=== PATIENT | male | born 1965 | race Caucasian/White ===

== ENCOUNTER → 2017-07-26 | Outpatient (CLI) | payer OTHER ==
[~2017-07-26] MED LIST: FLEXERIL10 MG PO; IBU-8800 MG PO; MOTRIN800 MG PO; PERCOCET 325 MG1 TA2 PO; PRILOSEC20 M1 PO
== END | disposition home or self-care (01) ==
LOC: MRI 13:21
DX: M25.561 Pain in right knee (principal); M25.361 Other instability, right knee; V89.2XXD Person injured in unspecified motor-vehicle accident, traffic, subsequent encounter

== ENCOUNTER → 2020-07-24 | Outpatient (CLI) | payer OTHER ==
[~2020-07-24] MED LIST changes: +CYCLOBENZAPRINE10 MG PO; +NAPROSYN500 MG PO; +NEURONTIN300 MG PO; +OXYCODONE HCL10 M1 PO; +REMERON15 M2 PO; +ZOFRAN4 MG PO; +ZYRTEC10 M3 PO
== END | disposition home or self-care (01) ==
LOC: RAD 14:27
PROVIDERS: ATTEND Nurse Practitioner Family
DX: M54.6 Pain in thoracic spine (principal)

== ENCOUNTER 2020-07-28 06:57 | Emergency (ER) | payer OTHER ==
[~2020-07-28] VITALS: Ht 182.8 cm; Wt 68.0 kg
[~2020-07-28 06:57] MED LIST changes: -CYCLOBENZAPRINE10 MG PO; -NAPROSYN500 MG PO; -NEURONTIN300 MG PO; -OXYCODONE HCL10 M1 PO; -REMERON15 M2 PO; -ZOFRAN4 MG PO; -ZYRTEC10 M3 PO
[2020-07-28] MEDS ORDERED: NAPROSYN500 MG PO (08:54)
[2020-07-28] MEDS ORDERED: CYCLOBENZAPRINE10 MG PO (08:54)
== END 2020-07-28 09:03 | disposition home or self-care (01) ==
LOC: ED 06:57
DX: S29.012A Strain of muscle and tendon of back wall of thorax, initial encounter (principal); K21.9 Gastro-esophageal reflux disease without esophagitis; F17.200 Nicotine dependence, unspecified, uncomplicated; Z79.899 Other long term (current) drug therapy; Z90.49 Acquired absence of other specified parts of digestive tract; X58.XXXA Exposure to other specified factors, initial encounter; Y93.89 Activity, other specified; Y92.89 Other specified places as the place of occurrence of the external cause; Y99.8 Other external cause status

== ENCOUNTER 2020-08-06 09:36 | Emergency (ER) | payer OTHER ==
[~2020-08-06 09:36] MED LIST changes: +CYCLOBENZAPRINE10 MG PO; +NAPROSYN500 MG PO
[2020-08-06 10:04] LABS: BASO # 0.1 10*3/uL (0.0-0.1); BASO % 0.5 % (0.0-1.0); EOS # 0.1 10*3/uL (0.0-0.4); EOS % 0.7 % (1.0-4.0); HEMATOCRIT 51.6 % (42.0-52.0); LYMPH # 1.9 10*3/uL (1.3-4.4); LYMPH % 10.8 % (27.0-41.0); MEAN CORPUSCULAR HGB 32.8 pg (27.0-31.0); MEAN CORPUSCULAR HGB CONC 32.8 g/dl (33.0-37.0); MEAN PLATELET VOLUME 8.3 fl (9.6-12.3); MONO % 5.8 % (3.0-9.0); NEUT # 14.1 10*3/uL (2.3-7.9); NEUT % 81.7 % (47.0-73.0); PLATELET COUNT AUTOMATED 396 10*3/uL (130-400); RED BLOOD COUNT 5.16 10*6/uL (4.50-5.90); WHITE BLOOD COUNT 17.2 10*3/uL (4.8-10.8)
[2020-08-06 10:12] LABS: ACT PARTIAL THROMBO TIME 25.4 SECONDS (20.0-32.1)
[2020-08-06 10:25] LABS: ALBUMIN 2.9 gm/dl (3.1-4.5); ALKALINE PHOSPHATASE 197 U/L (45-117); BUN 6 mg/dl (7-24); CHLORIDE 102 mmol/L (98-107); CREATININE 0.67 mg/dL (0.70-1.30); LIPASE 30 U/L (73-393); POTASSIUM 4.1 mmol/L (3.5-5.1); SGOT/AST 17 IU/L (3-35); SGPT/ALT 9 U/L (12-78); SODIUM 140 mmol/L (136-145)
== END 2020-08-06 18:35 | disposition short-term general hospital (02) ==
LOC: ED 09:36
PROVIDERS: Emergency Medicine
DX: M48.54XA Collapsed vertebra, not elsewhere classified, thoracic region, initial encounter for fracture (principal); C79.51 Secondary malignant neoplasm of bone; Z79.899 Other long term (current) drug therapy

== ENCOUNTER 2020-09-16 06:15 | Inpatient (IN) | payer OTHER ==
[~2020-09-16] VITALS: Ht 180.3 cm; Wt 56.8 kg
[2020-09-16 06:22] VITALS: BP 133/98
[2020-09-16 06:40] LABS: HEMATOCRIT 43.3 % (42.0-52.0); MEAN CELL VOLUME 96.7 fl (80.0-94.0); MEAN CORPUSCULAR HGB 32.4 pg (27.0-31.0); MEAN CORPUSCULAR HGB CONC 33.5 g/dl (33.0-37.0); MEAN PLATELET VOLUME 9.4 fl (9.6-12.3); PLATELET COUNT AUTOMATED 333 10*3/uL (130-400); RED BLOOD COUNT 4.48 10*6/uL (4.50-5.90); RED CELL DISTRI WIDTH 13.1 % (0-14.5); WHITE BLOOD COUNT 22.3 10*3/uL (4.8-10.8)
[2020-09-16 07:03] LABS: ALBUMIN 2.2 gm/dl (3.1-4.5); ALKALINE PHOSPHATASE 235 U/L (45-117); BUN 20 mg/dl (7-24); CHLORIDE 89 mmol/L (98-107); POTASSIUM 3.3 mmol/L (3.5-5.1); SGOT/AST 20 IU/L (3-35); SGPT/ALT 15 U/L (12-78); SODIUM 138 mmol/L (136-145); TOTAL PROTEIN 5.9 gm/dL (6.4-8.2)
[2020-09-16 07:06] LABS: PLATELET SUFFICIENCY NORMAL (NORMAL); POLYCHROMASIA SLIGHT; TOTAL CELLS COUNTED 100 #CELLS
--- NOTE | 2020-09-16 07:07 | NUR ---
REPORT RECIEVED FROM HÉCTOR BALTAZAR
[2020-09-16 08:18] VITALS: BP 129/96
--- NOTE | 2020-09-16 08:19 | NUR ---
PT CONFUSED TO PLACE AND TIME PT REPEATEDLY TRIES TO LEAVE ROOM PT SPOUSE WITH PATIENT TO HELP KEEP PT IN ROOM AND IN BED PT WITH POOR UNSTEADY GAIT
[2020-09-16 08:30] LABS: BILIRUBIN 2+ (Negative); BLOOD Negative (Negative); CLARITY Clear (Clear); COLOR Dark Yellow (Yellow); GLUCOSE Negative (Negative); KETONE Trace (Negative); LEUKO ESTERASE Trace (Negative); NITRITE Negative (Negative)
[2020-09-16 08:44] LABS: BACTERIA 1+; EPITHELIAL CELLS 0-2; HYALINE CAST 31-40; MUCOUS 1+
[2020-09-16 08:47] LABS: ACT PARTIAL THROMBO TIME 24.2 SECONDS (20.0-32.1); INTERNATIONAL NORM RATIO 1.1 (2.0-3.5)
[2020-09-16 08:52] LABS: LIPASE 16 U/L (73-393)
[2020-09-16 09:01] LABS: TROPONIN I < 0.015 ng/ml (<0.045)
[2020-09-16 09:43] VITALS: BP 122/93
[2020-09-16 11:34] VITALS: BP 118/88
[2020-09-16 13:53] LABS: BUN 19 mg/dl (7-24); CHLORIDE 93 mmol/L (98-107); CREATININE 0.52 mg/dL (0.70-1.30); SODIUM 137 mmol/L (136-145)
[2020-09-16 13:57] LABS: POTASSIUM 2.4 mmol/L (3.5-5.1)
--- NOTE | 2020-09-16 15:35 | NUR ---
CALLED TO ROOM PER RESIDENT. PT HAS PULLED HIS IV LINE OUT. DR QIU NOTIFIED.
--- NOTE | 2020-09-16 18:01 | NUR ---
DIETARY ORDER PUT IN AT THIS TIME FOR TRAY. DIETARY CONTACTED TO CONFIRM THEY RECEIVED ORDER.
--- NOTE | 2020-09-16 19:07 | NUR ---
PT REMOVED IV AT THIS TIME. THIS RN CONTACTED BOW STAPLER FOR 1:1 SITTER PER ORDER. BOW STAPLER STATES THERE IS NO STAFF FOR THIS AT THIS TIME. THIS RN CONTACTED DR COSTA AT THIS TIME TO INFORM HER THAT THIS RN FEELS UNCOMFORTABLE STARTING ANOTHER IV UNTIL 1:1 CARE CAN BE PROVIDED. INFORMED HER THAT PT SHOULD BE GOING TO FLOOR SOON PER NURSING BOW STAPLER.
[2020-09-16 19:45] LABS: BUN 20 mg/dl (7-24); CHLORIDE 94 mmol/L (98-107); CREATININE 0.49 mg/dL (0.70-1.30); SODIUM 138 mmol/L (136-145)
--- NOTE | 2020-09-16 19:45 | NUR ---
PT POTASSIUM 2.[address] VALDIVIA CONTACTED. STATES HE WILL ORDER K-DUR FOR REPLACEMENT.
[2020-09-16 19:48] LABS: POTASSIUM 2.4 mmol/L (3.5-5.1)
--- NOTE | 2020-09-16 20:32 | NUR ---
1:1 SITTER AT BEDSIDE AT THIS TIME. IV STARTED. MEDICATIONS RUNNING AT THIS TIME. WILL CONTINUE TO MONITOR
--- NOTE | 2020-09-16 21:44 | NUR ---
PT AGGITATED AT THIS TIME. ATTEMPT TO REDIRECT PT WAS MADE. PT TRYING TO PULL OUT IV. RESIDENT CONTACTED AT THIS TIME.
[2020-09-17 00:15] VITALS: BP 112/88
--- NOTE | 2020-09-17 00:15 | NUR ---
A 55, admitted to 5E, under the services of JAYJAY Vasques DO with a diagnosis of ems called to patient home for report of fall and altered mental status. patient reported feeling confused to EMS, family per EMS said patient has fallen multiple times in last 24hrs according to EMS run report and said patient had hit his head. Patient has just finished Chemo therapy for esophageal cancer. . Chief complaint is METABOLIC ENCEPHALOPATHY, DEHYDRATIONH, HYPERCALCEMIA. Patient arrived via stretcher from ER. Monitor applied. Initial assessment completed. Vital signs taken and recorded. JAYJAY VASQUES DO notified of admission to 5E unit. Orders received. See assessment for past medical history, medications and allergies. Patient and/or family oriented to unit. [address] visitation policy unable to notify patient D/T [facility]. Clothing/patient valuable form completed. No family with patient on admission. Patient speaking almost constantly randomly and sometimes not understandable. patient constantly fidigiting with clothing and bed sheets.patient reaching in the air for things not there. very restless. patient has 1:1 sitter at his bedside becausea patient has pulled multiple IV out. will not let heart monitor be placed pulls leads off. patient confused. No family here but left list of home medications. patient unable to answer questions appropriately. IV site in left upper arm infusing 0.9ns at this time. KATIA FABIAN
[2020-09-17] MEDS ORDERED: REMERON15 M2 PO (01:06)
[2020-09-17] MEDS ORDERED: OXYCODONE HCL10 M1 PO (01:08)
[2020-09-17] MEDS ORDERED: ZOFRAN4 MG PO (01:08)
[2020-09-17] MEDS ORDERED: ZYRTEC10 M3 PO (01:09)
[2020-09-17] MEDS ORDERED: NEURONTIN300 MG PO (01:10)
--- NOTE | 2020-09-17 02:27 | NUR ---
notified Dr. Lucio that patient home medication list was given to us by and is entered into the computer.
--- NOTE | 2020-09-17 02:34 | NUR ---
PATIENT CONTINUES TO BE RESTLESS IN BED CONSTANTLY MOVING LEGS AND PULLING AT BLANKETS/GOWN AND REACHING OUT. 1:1 SITTER AT BEDSIDE.
[2020-09-17 07:04] LABS: HEMATOCRIT 40.6 % (42.0-52.0); MEAN CORPUSCULAR HGB 32.2 pg (27.0-31.0); MEAN CORPUSCULAR HGB CONC 32.5 g/dl (33.0-37.0); MEAN PLATELET VOLUME 9.8 fl (9.6-12.3); PLATELET COUNT AUTOMATED 308 10*3/uL (130-400); RED CELL DISTRI WIDTH 13.2 % (0-14.5); WHITE BLOOD COUNT 20.9 10*3/uL (4.8-10.8)
--- NOTE | 2020-09-17 07:05 | NUR ---
1:1 SITTER IN ROOM WITH CONSTANT SUPERVISION THROUGHTOUT SHIFT.
[2020-09-17 07:11] LABS: BUN 18 mg/dl (7-24); CHLORIDE 102 mmol/L (98-107); CREATININE 0.39 mg/dL (0.70-1.30); SODIUM 143 mmol/L (136-145)
[2020-09-17 07:13] LABS: POTASSIUM 3.4 mmol/L (3.5-5.1)
[2020-09-17 07:40] LABS: VITAMIN D, 25-HYDROXY 35.6 ng/mL (30-100)
[2020-09-17 07:41] LABS: PTH INTACT 3.3 pg/mL (18.5-88.0)
[2020-09-17 08:00] VITALS: BP 128/87
[2020-09-17 08:24] LABS: TOTAL CELLS COUNTED 100 #CELLS
[2020-09-17 08:25] LABS: PLATELET SUFFICIENCY NORMAL (NORMAL)
--- NOTE | 2020-09-17 09:02 | NUR ---
PHYSICAL THERAPY Physical Therapy evaluation completed on 5E with full evaluation to follow. Moderate complexity skilled PT evaluation per chart review and evaluation, [address]. Recommend physical therapy per plan of care and SNF vs 24hr care and assist upon discharge. Thank you for this referral. Valentine Morrow,PT,DPT
--- NOTE | 2020-09-17 09:02 | NUR ---
Occupational Therapy evaluation completed on fiv with full evaluation to follow. Recommend occupational therapy per plan of care and SNF and if refused, home with HH with 17/04 supervision assist upon discharge. Thank you for this referral. Celestina Castro OTR/L
--- NOTE | 2020-09-17 09:05 | NUR ---
Reached out to Pt. this a.m. for Case Management Assessment. Pt. lives at home with his and she would like for Pt. to return home at Discharge. Inquired about Home Health, Nurses or In Home Care and states at this time they do not have anything. asking if Physician could call her and discuss Pt. Progress and Plan of Care, Asking if Pt. needed Hospice. Advised that Information Services Tech would reach out to Hospitalist Nurse and Advised Physician taking Care of Her to call her with an update today. Pt. Mentioned [facility] if those Services are Needed. Reassurance Provided to . Information Services Tech will Follow.
--- NOTE | 2020-09-17 10:00 | NUR ---
SPEECH PATHOLOGY Pt seen this date for bedside swallow evaluation per orders. Pt presented to ER on 09/16 secondary to multiple falls and AMS. Pt was recently dx'd with esophageal and spinal CA in July of 2020. Dysphagia eval warranted to assess swallow function and determine least restrictive diet. This WASTEWATER TREATMENT PLANT INSTRUCTOR ID'd pt via wristband. RN, Lizy, also present as she was providing pt with 1:1 supervision secondary to confusion/fall risk. Lizy assisted this WASTEWATER TREATMENT PLANT INSTRUCTOR in sitting pt upright in bed at 90 degrees. Pt alert and responsive, but presenting with disorientation and logorrhea. Pt unable to follow directions to complete thorough CN exam; however, facial symmetry and coordination appears in tact at bedside. Pt passed 3 oz water protocol, indicating low risk of aspiration. This WASTEWATER TREATMENT PLANT INSTRUCTOR also presented pt with regular textured trial (anders cracker); mastication somewhat prolonged, but functional for PO intake. Min oral residue clearing with liquid wash. RECOMMENDATIONS: REGULAR DIET AND THIN LIQUIDS -Pt should be seated upright for all meals This WASTEWATER TREATMENT PLANT INSTRUCTOR made pt's nurse, Serena, aware of diet recommendations. Serena verbalized understanding. No further tx warranted at this time. This department available for re-consult should pt status change. Thank you for this referral! NOEMI CALDERON M.A. [facility]-[employer] IN[employer]
--- NOTE | 2020-09-17 11:04 | NUR ---
Discharge Plannerin to talk to patient this a.m. in his Room. Pt. very confused and Restless. Information for Assessment Gathered from via telephone. There are No steps in the home. Physician:Norman Sinclair Pharmacy: [facility] [place] Home health services: None at this time Patient's level of ADLs: Needs Assist for all ADL's Patient has working utilities: Yes DME: Marquise Reyna Follow-up physician's appointment after d/c: Per Hospitalist Office. Does patient want to access PORTAL?: Declines Discharge plan discussed with Pt. . wants Pt. to return home. She expressed Concern that "This has happened so Quickly" offered that if Pt. would require Hospice Services she would prefer Referral to [facility] in [place]. They Do accept Pt. Insurance [facility]. No Preference for Home Health if Ordered. ISHMAEL REILLY LPN
[2020-09-17 12:00] VITALS: BP 113/77
--- NOTE | 2020-09-17 12:36 | NUR ---
DR. AMARAL'S ANSWERING SERVICE NOTIFIED OF CONSULT.
--- NOTE | 2020-09-17 12:51 | NUR ---
Call Placed to Pt. Brunilda. Physician had spoken with today and Provided with updates. Pt.will have pending tests. I advised Brunilda that I would call her Monday and Discuss further discharge Plans when tests have all come back.
[2020-09-17 16:00] VITALS: BP 136/77
[2020-09-17 20:00] VITALS: BP 141/88
--- NOTE | 2020-09-17 20:37 | NUR ---
DURING ASSESSMENT THE LEFT ARM HAS NOTICEABLE SWELLING, MORE THAN THE RIGHT. PT DENIES PAIN, NO HOT SPOTS NOTED. IV INFUSING INTO LEFT ARM WITHOUT ISSUES. NO INFILTRATION NOTED. NOTIFIED. SAID TO KEEP AN EYE ON IT AND HE WILL ALERT THE DAY SHIFT TEAM.
[2020-09-18] VITALS: BP 140/96; BP 142/96
--- NOTE | 2020-09-18 03:51 | NUR ---
24 HR CHART CHECK COMPLETED
[2020-09-18 07:09] LABS: HEMATOCRIT 39.1 % (42.0-52.0); MEAN CELL VOLUME 98.7 fl (80.0-94.0); MEAN CORPUSCULAR HGB 32.3 pg (27.0-31.0); MEAN CORPUSCULAR HGB CONC 32.7 g/dl (33.0-37.0); MEAN PLATELET VOLUME 9.6 fl (9.6-12.3); PLATELET COUNT AUTOMATED 263 10*3/uL (130-400); RED BLOOD COUNT 3.96 10*6/uL (4.50-5.90); RED CELL DISTRI WIDTH 13.2 % (0-14.5); WHITE BLOOD COUNT 16.5 10*3/uL (4.8-10.8)
--- NOTE | 2020-09-18 07:14 | NUR ---
NOTIFIED OF IONIZED CALCIUM OF 6.7. NO NEW ORDERS REC'D.
[2020-09-18 07:25] LABS: ALBUMIN 1.8 gm/dl (3.1-4.5); BUN 12 mg/dl (7-24); CHLORIDE 107 mmol/L (98-107); POTASSIUM 2.8 mmol/L (3.5-5.1); SODIUM 145 mmol/L (136-145)
[2020-09-18 07:29] LABS: ALKALINE PHOSPHATASE 167 U/L (45-117); CREATININE 0.38 mg/dL (0.70-1.30); SGOT/AST 31 IU/L (3-35); SGPT/ALT 19 U/L (12-78); TOTAL PROTEIN 5.5 gm/dL (6.4-8.2)
[2020-09-18 07:50] VITALS: BP 130/78
[2020-09-18 08:53] LABS: ATYPICAL LYMPHS 3 % (0-0); PLATELET SUFFICIENCY NORMAL (NORMAL); TOTAL CELLS COUNTED 100 #CELLS
[2020-09-18 12:00] VITALS: BP 135/95
[2020-09-18 16:00] VITALS: BP 153/84
--- NOTE | 2020-09-18 16:52 | NUR ---
MEDICATED WITH IV ATIVAN X 1 ORDERED FOR INCREASED AGITATION.
--- NOTE | 2020-09-18 17:40 | NUR ---
PRN IV ATIVAN EFFECTIVE; PATIENT HAVING LESS RESTLESS MOVEMENTS AND NO ANGRY AGITATED WORDS TO STAFF.
[2020-09-18 20:00] VITALS: BP 136/81
--- NOTE | 2020-09-18 23:14 | NUR ---
PT HAS S/S OF AGITATION AND ANXIETY. ATIVAN 0.5 MG VIA IVP GIVEN AT THIS TIME. WILL MONITOR FOR EFFECTIVENESS. CALL LIGHT IN REACH.
[2020-09-19] VITALS: BP 142/96
--- NOTE | 2020-09-19 00:14 | NUR ---
ATIVAN APPEARS EFFECTIVE. PT SLEEPING. NO S/S OF AGITATION AND ANXIETY. PATEINT ATTENDANT SITTING AT BEDSIDE. IV FLUIDS INFUSING PER ORDERS. SAFETY MEASURES IN PLACE. CALL LIGHT IN REACH.
--- NOTE | 2020-09-19 06:30 | NUR ---
PT HAS S/S OF PAIN WHILE BEING REPOSITIONED IN BED. MORPHINE 2 MG GIVEN AT THIS TIME. WILL MONITOR FOR EFFECTIVENESS. CALL LIGHT IN REACH.
[2020-09-19 07:30] LABS: ALBUMIN 1.6 gm/dl (3.1-4.5); ALKALINE PHOSPHATASE 157 U/L (45-117); BUN 8 mg/dl (7-24); CHLORIDE 112 mmol/L (98-107); CREATININE 0.31 mg/dL (0.70-1.30); POTASSIUM 2.8 mmol/L (3.5-5.1); SGOT/AST 26 IU/L (3-35); SGPT/ALT 21 U/L (12-78); SODIUM 147 mmol/L (136-145); TOTAL PROTEIN 5.1 gm/dL (6.4-8.2)
[2020-09-19 08:00] VITALS: BP 129/99
--- NOTE | 2020-09-19 08:15 | NUR ---
NOTIFIED OF IONIZED CALCIUM OF 6.4.
[2020-09-19 12:00] VITALS: BP 133/67
--- NOTE | 2020-09-19 15:08 | NUR ---
PER OK TO CANCEL 1:1. PATIENT RESTING IN BED CALM . DENIES ANY NEEDS. BED ALARM ON. IVF INFUSING PER ORDER.
[2020-09-19 16:00] VITALS: BP 132/90
--- NOTE | 2020-09-19 19:36 | NUR ---
24 HR chart check completed.
[2020-09-19 20:00] VITALS: BP 156/94
[2020-09-19 23:58] VITALS: BP 132/85
--- NOTE | 2020-09-20 01:10 | NUR ---
IV started right forearm with #22 angiocath. The IV site was prepped with Chloraprep. Heparin lock attached. IV solution 1/2 NS +40 mEq K+ infusing at 150 cc/hr. Sterile dressing applied. Patient tolerated precedure well. Procedure performed according to [facility] policy & procedure. IV to left upper arm discontinued, site edematous. BRIAN DALLAS A
--- NOTE | 2020-09-20 01:22 | NUR ---
MEDICATED WITH PRN MORPHINE FOR PAIN
--- NOTE | 2020-09-20 06:21 | NUR ---
NOTIFIED DR HARGROVE OF PATIENT HAVING BRIGHT RED BLOOD POURING OUT OF RECTUM. STATES SHE WILL PUT ORDERS IN
[2020-09-20 07:19] LABS: HEMATOCRIT 36.7 % (42.0-52.0); MEAN CORPUSCULAR HGB 31.6 pg (27.0-31.0); MEAN CORPUSCULAR HGB CONC 31.6 g/dl (33.0-37.0); MEAN PLATELET VOLUME 9.8 fl (9.6-12.3); PLATELET COUNT AUTOMATED 176 10*3/uL (130-400); RED BLOOD COUNT 3.67 10*6/uL (4.50-5.90); RED CELL DISTRI WIDTH 13.2 % (0-14.5)
[2020-09-20 07:31] LABS: ALBUMIN 1.6 gm/dl (3.1-4.5); ALKALINE PHOSPHATASE 156 U/L (45-117); BUN 8 mg/dl (7-24); CHLORIDE 111 mmol/L (98-107); CREATININE 0.37 mg/dL (0.70-1.30); POTASSIUM 3.6 mmol/L (3.5-5.1); SGOT/AST 26 IU/L (3-35); SGPT/ALT 22 U/L (12-78); SODIUM 147 mmol/L (136-145); TOTAL PROTEIN 5.1 gm/dL (6.4-8.2)
[2020-09-20 08:00] VITALS: BP 144/84
--- NOTE | 2020-09-20 09:10 | NUR ---
PT SEEN AND ASSESSED. PT WITH 1:1 AT BEDSIDE AND WAS INC OF BRIGHT RED STOOL. DR OTTO CALLED AND NOTIFIED AND HE WAS PRESENT AT BEDSIDE SOON AFTER FOR ASSESSMENT. STOOL SPECIMENS COLLECTED AND SENT. DR HERNANDEZ NOTIFIED.
[2020-09-20 09:15] LABS: PLATELET SUFFICIENCY NORMAL (NORMAL); TOTAL CELLS COUNTED 100 #CELLS
[2020-09-20 10:08] LABS: HEMATOCRIT 32.7 % (42.0-52.0); MEAN CELL VOLUME 100.3 fl (80.0-94.0); MEAN CORPUSCULAR HGB 32.2 pg (27.0-31.0); MEAN CORPUSCULAR HGB CONC 32.1 g/dl (33.0-37.0); MEAN PLATELET VOLUME 9.6 fl (9.6-12.3); PLATELET COUNT AUTOMATED 147 10*3/uL (130-400); RED BLOOD COUNT 3.26 10*6/uL (4.50-5.90); RED CELL DISTRI WIDTH 13.1 % (0-14.5); WHITE BLOOD COUNT 25.8 10*3/uL (4.8-10.8)
[2020-09-20 10:28] LABS: PLATELET SUFFICIENCY NORMAL (NORMAL); TOTAL CELLS COUNTED 100 #CELLS
[2020-09-20 12:00] VITALS: BP 124/81
--- NOTE | 2020-09-20 13:54 | NUR ---
PT MEDICATED WITH IV MORPHINE DUE TO RESTLESSNESS. PT UNABLE TO VERBALIZE PAIN. WILL REASSESS. 1:1 PRESENT AT BEDSIDE. PT EXTREMEMLEY RESTLESS AND ATTEMPTING TO TAKE CLOTHING OFF AND BLANKETS. WILL CONTINUE TO ASSESS.
[2020-09-20 16:00] VITALS: BP 118/88
[2020-09-20 18:00] LABS: HEMATOCRIT 28.3 % (42.0-52.0)
--- NOTE | 2020-09-20 18:46 | NUR ---
PT MEDICATED WITH PRN PAIN MEDICATION FOR RESTLESSNESS.
[2020-09-20 20:00] VITALS: BP 121/79
--- NOTE | 2020-09-20 22:51 | NUR ---
MORPHINE GIVEN PER ORDER FOR RESTLESSNESS APPEARS TO BE HAVING PAIN IN RIGHT HIP AREA. SEE MAR.
--- NOTE | 2020-09-20 23:50 | NUR ---
MORPHINE EFFECTIVE PATIENT SEEMS TO BE MORE CALM BUT CONTINUES TO BE MOVING ALL OVER AND MUMBLING AND SPEAKING RANDOM THOUGHTS IN CONVERSATION.
[2020-09-21] VITALS (9 sets, daily range): BP systolic 126–142; BP diastolic 78–95
[2020-09-21 00:31] LABS: HEMATOCRIT 27.7 % (42.0-52.0)
--- NOTE | 2020-09-21 04:28 | NUR ---
24 HR chart check completed.
[2020-09-21 06:35] LABS: HEMATOCRIT 29.4 % (42.0-52.0)
[2020-09-21 06:39] LABS: MEAN CELL VOLUME 98.6 fl (80.0-94.0); MEAN CORPUSCULAR HGB CONC 32.4 g/dl (33.0-37.0); MEAN PLATELET VOLUME 9.8 fl (9.6-12.3); PLATELET COUNT AUTOMATED 140 10*3/uL (130-400); RED BLOOD COUNT 2.94 10*6/uL (4.50-5.90); RED CELL DISTRI WIDTH 13.2 % (0-14.5); WHITE BLOOD COUNT 21.1 10*3/uL (4.8-10.8)
--- NOTE | 2020-09-21 06:40 | NUR ---
PATIENT HAD MOUTH CARE DONE WITH MOUTHFUL OF SPIT UP VERY FOUL SMELLING. 1:1 SITTER CONTINUES IN ROOM FOR ENTIRE SHIFT. SEE 1:1 OBSERVATION SHEET.
[2020-09-21 07:11] LABS: ALBUMIN 1.6 gm/dl (3.1-4.5); ALKALINE PHOSPHATASE 149 U/L (45-117); BUN 9 mg/dl (7-24); CHLORIDE 108 mmol/L (98-107); CREATININE 0.35 mg/dL (0.70-1.30); POTASSIUM 3.7 mmol/L (3.5-5.1); SGOT/AST 139 IU/L (3-35); SGPT/ALT 44 U/L (12-78); SODIUM 143 mmol/L (136-145); TOTAL PROTEIN 4.9 gm/dL (6.4-8.2)
--- NOTE | 2020-09-21 07:17 | NUR ---
CALLED DR. TORRES AND NOTIFIED HIM OF CRITICAL IONIZED CALCIUM 6.6 NO NEW ORDERS.
[2020-09-21 07:22] LABS: PLATELET SUFFICIENCY NORMAL (NORMAL); TOTAL CELLS COUNTED 100 #CELLS
--- NOTE | 2020-09-21 10:18 | NUR ---
PHYSICAL THERAPY Patient presented to therapy in supine with head of bed elevated and sitting in room named Tayla keeping an eye 09/25 on patient. Patient gives informed consent for treatment. Patient was identified by name and on wristband. Patient reports pain all over, but especially in the R LE. Patient required MAX A X 2 supine > sitting on EOB. Patient sat on EOB for 4 minutes with SBA. Patient was unable to STS from EOB due to pain. A wound was observed on the mid-back area on the R side and redness was observed along the spinous processes of the spine from pressure from laying. Patient was transferred back to supine in bed with MAX A X 2. Patient was moved up to head of bed with MAX A X 2 using sheet. Patient with significant pain in verious parts of the body. Patient was left in supine in bed with head of bed elevated and bed alarm on with Tayla ,the PA, sitting in room with patient. Patient bed alarm turned on and head of bed elevated. Patient treatment was witnessed by KEVAN Lundberg. Patient was 1:1 with this BRIM MOLDER for 18 minutes total. DEBORAH BRYANT BRIM MOLDER
--- NOTE | 2020-09-21 10:25 | NUR ---
OT NOTE Pt was seen this A.M. 1:1 for 15 minute OT session. Upon arrival pt was supine in bed with 1:1 sitter at bedside. Pt identified by name and on wristband. Pt transferred supine to sit EOB with maxA X 2. While sitting EOB an open area was noted on pt's back, notified pt's nurse. Pt tolerated sitting EOB for aprox 4 minutes before requesting to lay back in bed. While sitting EOB pt presented with G static sitting balance. Attempted to challenged pt's dynamic sitting balance and pt was unable to follow commands. Also attempted to complete sit to stand from bed level and pt was declining shaking his head no. Pt then transferred back into bed sit to supine with maxA X 2. There he was left with call light in reach, bed rails up, and 1:1 sitter at bedside. Continue with rec D/C plan to SNF. KEVAN aCrter/Erica
[2020-09-21 12:05] LABS: HEMATOCRIT 27.9 % (42.0-52.0)
--- NOTE | 2020-09-21 14:41 | NUR ---
Discharge Plan remains unchanged. Pt. will return home with his at Discharge. If Hospice is ordered is requesting [facility].
--- NOTE | 2020-09-21 22:41 | NUR ---
MORPHINE GIVEN PER ORDER FOR PAIN PER PT. PT UNABLE TO RATE PAIN. SEE NOV.
--- NOTE | 2020-09-21 23:35 | NUR ---
SPOKE WITH DR. CHRISTIAN AND NOTIFIED HER OF DR. FOWLER PUTTING PATIENT INTO COVID PRECAUTIONS AND PATIENT WILL BE TRANSFERRED TO .
--- NOTE | 2020-09-21 23:40 | NUR ---
MORPHINE EFFECTIVE FOR PAIN PATIENT APPEARS MORE RELAXED AND LESS AGGITATED.
[2020-09-22] VITALS: BP 118/82
--- NOTE | 2020-09-22 03:14 | NUR ---
MORPHINE GIVEN PER ORDER FOR PAIN WITH MOVEMENT WHILE BATH GIVEN.PAIN APPEARS TO BE IN PATIENTS RIGHT LEG. PATIENT UNABLE TO RATE PAIN PAIN CONFIRMED WITH FACIAL GRIMACE AND YELLING OUT. SEE MAR.
--- NOTE | 2020-09-22 04:10 | NUR ---
PATIENT RESTING MORPHINE EFFECTIVE FOR PAIN.
--- NOTE | 2020-09-22 05:04 | NUR ---
24 HR chart check completed.
[2020-09-22 06:44] LABS: ALBUMIN 1.5 gm/dl (3.1-4.5); ALKALINE PHOSPHATASE 151 U/L (45-117); BUN 8 mg/dl (7-24); CHLORIDE 107 mmol/L (98-107); CREATININE 0.28 mg/dL (0.70-1.30); POTASSIUM 3.8 mmol/L (3.5-5.1); SGOT/AST 392 IU/L (3-35); SGPT/ALT 112 U/L (12-78); SODIUM 143 mmol/L (136-145); TOTAL PROTEIN 4.8 gm/dL (6.4-8.2)
[2020-09-22 08:00] VITALS: BP 113/80
--- NOTE | 2020-09-22 08:00 | NUR ---
OT NOTE Pt was seen this A.M. 1:1 for 15 minute OT session. Upon arrival pt was supine in bed with 1:1 sitter at bedside. Pt identified by name and on wristband and had complaints of pain all over which he was unable to rate on 0-10 pain scale. Pt transferred supine to sit EOB with maxA X 2. While sitting EOB pt presented with P+ sitting balance this session requiring modA to correct retrograde posture. Pt tolerated sitting EOB for aprox 60 seconds before requesting to lay back into bed. Pt transferred sit to supine with maxA X 2. Attempted to complete other ADL tasks and pt was unable to follow commands given and presented with poor attention to task. Pt was left supine in bed with call light in reach, bed rails up, bed alarm activated, and 1:1 sitter at bedside. Continue with rec D/C plan to SNF. KEVAN Carter/Erica
--- NOTE | 2020-09-22 09:55 | NUR ---
PT MEDICATED WITH IV MORPHINE PER PRN ORDER FOR S/S PAIN/DISCOMFORT. PT MOANING WITH REPOSITIONING. WILL MONITOR EFFECTIVENESS OF MEDICATION. PT REMAINS 1:1. SITTER AT BEDSIDE. CALL LIGHT WITHIN REACH.
--- NOTE | 2020-09-22 10:50 | NUR ---
THIS NURSE CALLED INTO PATIENT'S ROOM. PT RIPPED IV OUT AND NOT COOPERATIVE AT THIS TIME. IN TO SEE PATIENT AND AWARE OF IV OUT. AWAITING PHYSICIAN ORDERS.
[2020-09-22 12:00] VITALS: BP 121/82
--- NOTE | 2020-09-22 12:30 | NUR ---
NOTIFIED REGARDING TACHYCARDIA AND TACHYPNEA. HR 127. RR 28-30/MIN.NEW ORDERS TO BE ENTERED PER PHYSICIAN.
--- NOTE | 2020-09-22 13:58 | NUR ---
PHYSICAL THERAPY Patient presented to therapy in supine with head of bed elevated and bed alarm on. Patient gives informed consent for treatment. Patient was identified by name and on wristband. Patient complains of pain in the R hamstring area and pain in the R LE as a whole. Patient performed supine > sitting on EOB with MAX A X 2. Patient sat on EOB with MIN A X 1 - CGA for 5 minutes total. Patient was unable to perform LAQs or marches today due to increased pain level. Patient required MAX A X 2 to lie back down in bed supine. Patient moved up to head of bed with sheet and MAX A X 2. Patient was left in supine in bed with head of bed elevated, call light within reach and bed alarm on. Patient was 1:1 with this DIRECT MARKETING COORDINATOR for 15 minutes total. DEBORAH BRYANT DIRECT MARKETING COORDINATOR
--- NOTE | 2020-09-22 14:36 | NUR ---
PATIENT RETURNED TO ROOM FROM SCHEDULED TESTS.
--- NOTE | 2020-09-22 15:18 | NUR ---
ANOOP WAS ABLE TO LOCATE A PHONE NUMBER FOR SON RODY WALLIS [phone]. HE PROVIDED NUMBER FOR PATIENTS CELL PHONE NUMBER [phone]. [employer] SUPERVISOR PROVIDED BOTH NUMBERS TO DR GEORGE. ANOOP THEN RECEIVED CALL BACK FROM PATIENTS LISTED HOME PHONE. ANOOP TRANSFERED THE CALL TO DR. GEORGE DIRECTLY.
[2020-09-22 16:00] VITALS: BP 119/74
--- NOTE | 2020-09-22 16:04 | NUR ---
OKAY TO KEEP IV OUT PER .
--- NOTE | 2020-09-22 17:30 | NUR ---
SPOKE WITH PATIENT'S REGARDING TRANSFER FOR VASCULAR CONSULT. AWAITING TRANSFER ORDER.
--- NOTE | 2020-09-22 17:45 | NUR ---
IV RESTARTED AND IV FLUIDS INITIATED.
--- NOTE | 2020-09-22 20:00 | NUR ---
dr handy called to confirm anticipated transfer. dr handy states he is waiting for a bed. will follow up in regards to this.
--- NOTE | 2020-09-22 20:20 | NUR ---
pt medicated with prn pain medication. pt unable to verbalize pain with number but is restless and agitated after being moved around in bed for incontinence change. will ressess
--- NOTE | 2020-09-22 21:20 | NUR ---
PT RESTING QUIETLY IN BED WITH EYES CLOSED. PT DOES NOT VERBALIZE ANY C/O AT THIS TIME.
--- NOTE | 2020-09-22 21:56 | NUR ---
[facility] CALLED TO CLARIFY BED AVAILIBITY. PT IS TO BE TAKEN TO [facility] ER PER SHAKEEL IN BED FLOW MANAGEMENT. ACCEPTING PHYSICAN IS ARIANE WETZEL. DR VALDIVIA CONTACTED TO INFORM OF THIS INFORMATION FOR [facility]GE INSTRUCTIONS. TO BE CALLED TO INFORM OF TRANSPORT VIA [facility]. WILL UPDATE.
--- NOTE | 2020-09-22 23:32 | NUR ---
PT AGITATED. PT UNABLE TO VERBALIZE NUMERICAL VALUE FOR PAIN RATING BUT STATES HIS LEG HURTS. PT MEDICATED WITH PRN PAIN MEDICATION AT THIS TIME. WILL REASSESS IF PT IS STILL HERE ON UNIT.
--- NOTE | 2020-09-22 23:40 | NUR ---
PT TRANSFERED TO [facility] VIA [id number]. REPORT CALLED TO STAFF AT [facility] PREVIOUSLY. PAPERWORK COMPLETED. IV TO REMAIN INTACT. NO CURRENT CC/O AT THIS TIME.
--- NOTE | 2020-09-23 07:53 | NUR ---
PHYSICAL THERAPY CO-SIGN I approve of the Phyical Therapy notes written above. Mehnaz Bolivar PT DPT
--- NOTE | 2020-09-23 07:58 | NUR ---
OCCUPATIONAL THERAPY CO-SIGN I approve of the Occupational Therapy notes written above. BRYAN DE LEON, OTR/L
== END 2020-09-23 03:43 | disposition short-term general hospital (02) | DRG 871 ==
LOC: ED 06:15 → 5E 10:33 → EDHOLD 10:33 → 5E 22:33
PROVIDERS: Emergency Medicine; Internal Medicine; Internal Medicine Nephrology; Student in an Organized Health Care Education/Training Program; Surgery; ADMIT Student in an Organized Health Care Education/Training Program; ATTEND Student in an Organized Health Care Education/Training Program
PROC: 0W3P8ZZ Control Bleeding in Gastrointestinal Tract, Via Natural or Artificial Opening Endoscopic (ICD-10-PCS; principal; 2020-09-21)
DX: A41.9 Sepsis, unspecified organism (principal); E43 Unspecified severe protein-calorie malnutrition; G93.41 Metabolic encephalopathy; C15.9 Malignant neoplasm of esophagus, unspecified; C41.2 Malignant neoplasm of vertebral column; K92.2 Gastrointestinal hemorrhage, unspecified; G95.20 Unspecified cord compression; S32.010A Wedge compression fracture of first lumbar vertebra, initial encounter for closed fracture; E87.3 Alkalosis; Z68.1 Body mass index [BMI] 19.9 or less, adult; E86.0 Dehydration; R73.9 Hyperglycemia, unspecified; E83.39 Other disorders of phosphorus metabolism; J44.9 Chronic obstructive pulmonary disease, unspecified; R16.0 Hepatomegaly, not elsewhere classified; I70.201 Unspecified atherosclerosis of native arteries of extremities, right leg; Z51.5 Encounter for palliative care; F17.200 Nicotine dependence, unspecified, uncomplicated; W01.0XXA Fall on same level from slipping, tripping and stumbling without subsequent striking against object, initial encounter; A08.4 Viral intestinal infection, unspecified; E83.42 Hypomagnesemia; I10 Essential (primary) hypertension; K21.9 Gastro-esophageal reflux disease without esophagitis; F32.9 Major depressive disorder, single episode, unspecified; E87.6 Hypokalemia; E83.52 Hypercalcemia; Y93.89 Activity, other specified; Y92.89 Other specified places as the place of occurrence of the external cause; Y99.8 Other external cause status; Z90.49 Acquired absence of other specified parts of digestive tract; Z79.899 Other long term (current) drug therapy; Z82.0 Family history of epilepsy and other diseases of the nervous system; Z82.5 Family history of asthma and other chronic lower respiratory diseases; Z92.3 Personal history of irradiation